=== PATIENT | male | born 1985 | race Caucasian/White ===

== ENCOUNTER 2019-01-25 19:27 | Emergency (ER) | payer OTHER ==
[~2019-01-25] VITALS: Ht 182.9 cm; Wt 128.8 kg
[2019-01-25] MEDS ORDERED: TESTOSTERON100 MG/ML IM (19:45)
[2019-01-25 20:35] LABS: HEMOGLOBIN 16.9 gm/dL (14.0-18.0); RBC 6.09 mil/uL (4.50-6.00)
[2019-01-25 20:37] LABS: ABSOLUTE NEUTROPHILS 4.4 thou/uL (1.4-8.2); BASOPHILS 0.7 % (0.0-2.0); EOSINOPHILS 3.9 % (0.0-3.0); HEMATOCRIT 49.8 % (42.0-52.0); LYMPHOCYTES 33.9 % (24.0-44.0); MCH 27.7 pg (26.0-34.0); MCHC 33.9 g/dL (28.0-37.0); MCV 81.8 fL (80.0-100.0); MONOCYTES 5.9 % (1.0-8.0); PLATELET COUNT 156 thou/uL (150-400); POLYS 55.6 % (36.0-66.0); RDW 14.4 % (10.5-14.5); WBC 7.9 thou/uL (4.0-11.0)
[2019-01-25 20:42] LABS: CALCIUM 8.9 mg/dL (8.5-10.1); CREATININE 1.3 mg/dL (0.7-1.3); POTASSIUM 4.1 mmol/L (3.5-5.1)
[2019-01-26 00:33] VITALS: BP 146/64
== END 2019-01-26 00:34 | disposition home or self-care (01) ==
LOC: ER 19:27
PROVIDERS: Emergency Medicine
DX: T18.128A Food in esophagus causing other injury, initial encounter (principal); X58.XXXA Exposure to other specified factors, initial encounter; Y93.89 Activity, other specified; Y92.89 Other specified places as the place of occurrence of the external cause; Y99.8 Other external cause status
CPT/HCPCS: 62110; 62900